=== PATIENT | female | born 1980 | race Caucasian/White ===

== ENCOUNTER 2021-08-15 10:02 | Emergency (ER) | payer MEDICAID ==
[~2021-08-15] VITALS: Ht 157.5 cm; Wt 48.3 kg
[~2021-08-15 10:02] MED LIST: NO HOME MEDS
[2021-08-15 10:17] VITALS: BP 119/90
== END 2021-08-15 11:45 | disposition home or self-care (01) ==
LOC: ER 10:03
DX: M25.512 Pain in left shoulder (principal); F15.10 Other stimulant abuse, uncomplicated; Z88.0 Allergy status to penicillin; X58.XXXA Exposure to other specified factors, initial encounter; Y93.89 Activity, other specified; Y92.89 Other specified places as the place of occurrence of the external cause; Y99.8 Other external cause status
CPT/HCPCS: 73030; 99283

== ENCOUNTER 2022-08-25 18:04 | Emergency (ER) | payer MEDICAID ==
[~2022-08-25] VITALS: Ht 158.8 cm; Wt 50.6 kg
[2022-08-25 18:10] VITALS: BP 116/78
== END 2022-08-25 19:03 | disposition home or self-care (01) ==
LOC: ER 18:06
DX: D50.9 Iron deficiency anemia, unspecified (principal); F15.90 Other stimulant use, unspecified, uncomplicated; Z98.51 Tubal ligation status; Z98.890 Other specified postprocedural states; Z79.899 Other long term (current) drug therapy
CPT/HCPCS: 99281; 99283